=== PATIENT | female | born 1995 | race African-American/Black ===

== ENCOUNTER 2017-11-24 03:34 | Emergency (ER) | payer SELFPAY ==
[2017-11-24 04:33] LABS: BARBITURATES NEG (NEG); BENZODIAZEPINES NEG (NEG); CANNABINOIDS POS (NEG); COCAINE NEG (NEG); METHADONE NEG (NEG); OPIATES NEG (NEG); PHENCYCLIDINE NEG (NEG)
[2017-11-24 04:40] LABS: ETHANOL, URINE NEG (NEG)
== END 2017-11-24 05:05 | disposition home or self-care (01) ==
LOC: ER 03:34
DX: R00.2 Palpitations (principal); F41.9 Anxiety disorder, unspecified; F12.10 Cannabis abuse, uncomplicated
CPT/HCPCS: 80307; 93005; 99285-25